=== PATIENT | male | born 1985 | race Caucasian/White ===

== ENCOUNTER 2017-08-05 07:12 | Emergency (ER) | payer BC ==
[2017-08-05] MEDS: KETOROLAC 30 MG INJ IM (08:20)
[2017-08-05 08:30] LABS: URINE PH (Dip) POC 7.5 (5.0-8.5)
[2017-08-05 08:30] LABS: URINE BLOOD (Dip) POC Negative (NEGATIVE); URINE GLUCOSE (Dip) POC Negative (NEGATIVE); URINE KETONES (Dip) POC Negative (NEGATIVE); URINE LEUKOCYTE EST (Dip) POC Negative (NEGATIVE); URINE NITRITE (Dip) POC Negative (NEGATIVE); URINE TOTAL PROTEIN POC Negative (NEGATIVE)
== END 2017-08-05 09:10 | disposition home or self-care (01) ==
LOC: FTE 07:12
DX: M54.5 Low back pain (principal)
CPT/HCPCS: 81003; 96372; 99284-25